=== PATIENT | female | born 1955 | race Caucasian/White ===

== ENCOUNTER → 2024-11-04 10:10 | Outpatient (CLI) | payer MEDICARE, OTHER, SELFPAY ==
[2024-11-06 14:12] LABS: Candida species Negative (Negative); Gardnerella vaginalis Negative (Negative); Trichomoas vaginalis Negative (Negative)
== END ==
PROVIDERS: Family Provider Family Medicine; PCP Internal Medicine; Visit Provider Obstetrics & Gynecology
DX: N89.8 Other specified noninflammatory disorders of vagina (principal)
CPT/HCPCS: 87480; 87510; 87660